=== PATIENT | male | born 1980 | race Hispanic/Latino ===

== ENCOUNTER 2018-04-16 16:40 | Emergency (ER) | payer SELFPAY ==
[2018-04-16] MEDS ORDERED: CYCLOBENZAPRINE 10 MG TAB ONE (18:03)
[2018-04-16] MEDS ORDERED: IBUPROFEN 200 MG TAB PO ONE (18:03)
[2018-04-16] MEDS ORDERED: IBUPROFEN 400 MG TAB ONE (18:03)
[2018-04-16] MEDS ORDERED: HYDROCODONE/APAP 10/325 TAB ONE (18:04)
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
== END 2018-04-16 20:07 | disposition home or self-care (01) ==
LOC: ER 16:40
DX: S39.012A Strain of muscle, fascia and tendon of lower back, initial encounter (principal); S96.912A Strain of unspecified muscle and tendon at ankle and foot level, left foot, initial encounter; V49.49XA Driver injured in collision with other motor vehicles in traffic accident, initial encounter; Z91.010 Allergy to peanuts
CPT/HCPCS: 72100; 99284